=== PATIENT | female | born 1940 | race Caucasian/White ===

== ENCOUNTER 2017-03-03 00:48 | Emergency (ER) | payer BC, MEDICARE ==
[2017-03-03 03:13] VITALS: BP 146/57
[2017-03-03 03:42] LABS: Hematocrit 32 % (35-47); Hemoglobin 10.5 g/dl (12.0-16.0); Mean Corpuscular HGB Conc 33 g/dl (31-36); Mean Corpuscular Hemoglobin 27 pg (27-31); Mean Corpuscular Volume 84 fL (80-97); Mean Platelet Volume 10 um3 (7.4-10.4); Red Blood Count 3.82 10^6/ul (4.0-5.4); Red Cell Distribution Width 15 % (10.5-15); White Blood Count 7.9 10^3/ul (3.5-10.8)
[2017-03-03 03:54] LABS: BUN/Creatinine Ratio 24.8 (8-20); Calcium 8.9 mg/dL (8.6-10.3); EGFR African American 42.7 (>60); EGFR Non-African American 33.2 (>60); Potassium 4.5 mmol/L (3.5-5.0)
[2017-03-03 04:26] LABS: TSH (Thyroid Stimulating Horm) 8.23 mcIU/mL (0.34-5.60)
[2017-03-03 04:33] LABS: Free T4 0.79 ng/dL (0.61-1.12)
--- NOTE | 2017-03-03 20:37 | ED ---
Tulio Fraire Alok, scribed for Jerome Aleman MD on 03/03/17 at 0346 . Lower Extremity - HPI Summary HPI Summary: 76F presents to the ED for restless leg syndrome. Pt has had restless leg syndrome for the past few Pt states her condition is so severe that it caused her to fracture her foot two weeks ago. Pt states her restless leg syndrome occurs both at night as well as during the day. Pt takes sleeping pills and medication for restless leg syndrome. PMHx includes DM. Pt states her sugar levels have been slightly high. - History of Current Complaint Chief Complaint: EDGeneral Stated Complaint: PAIN IN BOTH LEGS Time Seen by Provider: 03/03/17 02:47 Hx Obtained From: Patient Onset/Duration: Weeks Severity Initially: Moderate Severity Currently: Moderate Pain Intensity: 8 Pain Scale Used: 0-10 Numeric Timing: Intermittent Associated Signs And Symptoms: Positive: Other - restless legs Able to Bear Weight: Yes - Allergies/Home Medications Allergies/Adverse Reactions: Allergies Allergy/AdvReac Type Severity Reaction Status Date / Time Meperidine [From Demerol HCl] Allergy Severe Nausea And Verified 03/03/17 03:10 Vomiting PMH/Surg Hx/FS Hx/Imm Hx Endocrine/Hematology History: Reports: Hx Diabetes - ORAL MEDS & INSULIN, Hx Thyroid Disease - FAINTED x 3 IN 03/2015, DR DOMINGUEZ R/T LOW THYROID, STARTED ON MEDS, OK NOW, Hx Anemia - STATES SHE TENDS TO BE LOW, NO MEDS Cardiovascular History: Reports: Hx Hypertension - ON MEDS, STATES UNDER CONTROLL, Hx Syncope - fainted 5 years ago. GI History: Reports: Hx Gastroesophageal Reflux Disease - ON DAILY MED, Hx Hiatal Hernia - yrs ago now on omeprazole and does well, Hx Ulcer - Hx OF yrs ago Denies: Hx Cirrhosis, Hx Crohn's Disease Comment Only: Other GI Disorders - Hx OF ULCERATIVE COLITIS History: Reports: Hx Kidney Stones - Hx OF , PASSED ON OWN Musculoskeletal History: Reports: Hx Arthritis - OSTEOARTHRITIS MOST JOINTS, Hx Bursitis - SHOULDERS, Hx Tendonitis - WRISTS Sensory History: Reports: Hx Cataracts - BILATERAL, HAD SURGERY, Hx Contacts or Glasses - GLASSES INST GIVEN Opthamlomology History: Reports: Hx Cataracts - BILATERAL, HAD SURGERY, Hx Contacts or Glasses - GLASSES INST GIVEN Psychiatric History: Reports: Hx Anxiety - ON DAILY MEDS, Hx Depression - Surgical History Surgery Procedure, Year, and Place: 1963 & 1966 C [facility] 1979 [facility]. 1979-1 2 INCISIONAL HER[facility]AS [facility]. 1979' VARICOSE VEIN [facility]. BACK SURGERY, LUMBAR [facility]. [facility]UNIONECTOMY [facility] 1989' ACHILES TENDON [facility]. RT KNEE SCOPE [facility]. BACK SURGERY, LUMBAR [facility]. 1999 [facility]. 1999 PARATHYROID ONE LOBE [facility]. 2003 BILATERAL CATARACTS. 2012 LEFT TOTAL KNEE [facility] Hx Anesthesia Reactions: Yes - MANY Xs SEVERE N & V, STATES 2013 WAS GOOD, STATES GAVE HER PREOP Infectious Disease History: No Infectious Disease History: Denies: Traveled Outside the [place] in Last 30 Days - Family History Known Family History: Positive: Cardiac Disease - mother at age 69 - Social History Occupation: Retired Lives: Alone Alcohol Use: None Hx Substance Use: No Substance Use Type: Reports: None Hx Tobacco Use: No Smoking Status (MU): Never Smoked Tobacco Have You Smoked in the Last Year: No Review of Systems Negative: Fever, Chills Negative: Erythema Negative: Sore Throat Negative: Chest Pain Negative: Shortness Of Breath, Cough Negative: Abdominal Pain, Vomiting, Nausea Negative: dysuria, hematuria Positive: Other - Restless legs. Negative: Myalgia, Edema Negative: Rash Neurological: Other - Negative: Dizziness All Other Systems Reviewed And Are Negative: Yes Physical Exam - Summary Physical Exam Summary: Constitutional: Well-developed, Well-nourished, Alert. (-) Distressed Skin: Warm, Dry HENT: Normocephalic; Atraumatic Eyes: Conjunctiva normal Neck: Musculoskeletal ROM normal neck. (-) JVD, (-) Stridor, (-) Tracheal deviation Cardio: Rhythm regular, rate normal, Heart sounds normal; Intact distal pulses; The pedal pulses are 2+ and symmetric. Radial pulses are 2+ and symmetric. (-) Murmur Pulmonary/Chest wall: Effort normal. (-) Respiratory distress, (-) Wheezes, (-) Rales Abd: Soft, (-) Tenderness, (-) Distension, (-) Guarding, (-) Rebound Musculoskeletal: (-) Edema Lymph: (-) Cervical adenopathy Neuro: Alert, Oriented x3 Psych: Mood and affect Normal Triage Information Reviewed: Yes Vital Signs On Initial Exam: Initial Vitals Temp Pulse Resp BP Pulse Ox 97.5 F 96 16 121/101 99 03/03/17 00:50 03/03/17 00:50 03/03/17 00:50 03/03/17 00:50 03/03/17 00:50 Vital Signs Reviewed: Yes - Marc Coma Scale Coma Scale Total: 15 Diagnostics - Vital Signs Vital Signs Temp Pulse Resp BP Pulse Ox 03/03/17 03:05 98.2 F 76 14 146/57 97 03/03/17 02:15 98.3 F 95 16 144/44 97 03/03/17 00:50 97.5 F 96 16 121/101 99 - Laboratory Result Diagrams: 03/03/17 03:20 03/03/17 03:20 Lab Statement: Any lab studies that have been ordered have been reviewed, and results considered in the medical decision making process. Lower Extremity Course/Dx - Diagnoses Provider Diagnoses: Restless leg syndrome Discharge - Discharge Plan Condition: Stable Disposition: HOME Patient Education Materials: Restless Legs Syndrome (ED) The documentation as recorded by the Tulio patrick Alok accurately reflects the service I personally performed and the decisions made by Love dempsey Jerry, MD.
== END 2017-03-03 04:41 | disposition home or self-care (01) ==
LOC: ED 00:48
DX: G25.81 Restless legs syndrome (principal); E11.9 Type 2 diabetes mellitus without complications; Z79.4 Long term (current) use of insulin
CPT/HCPCS: 36415; 80048; 82330; 84439; 84443; 85027; 99282; 99285

== ENCOUNTER 2019-04-18 13:22 | Emergency (ER) | payer BC ==
[2019-04-18 14:14] VITALS: BP 138/58
== END 2019-04-18 15:42 | disposition left against medical advice (07) ==
LOC: UCEAST 13:22
DX: M54.9 Dorsalgia, unspecified (principal); Z53.21 Procedure and treatment not carried out due to patient leaving prior to being seen by health care provider
CPT/HCPCS: 81003

== ENCOUNTER 2019-04-30 09:58 | Emergency (ER) | payer BC ==
[2019-04-30] MEDS ORDERED: NS 0.9% 1000 ML** 1,000 ML IV ONE (10:33)
--- NOTE | 2019-04-30 10:33 | ED ---
Back Pain - HPI Summary HPI Summary: This patient is a 78 year old F presenting to [facility] accompanied by son with a chief complaint of worsening back pain radiating to flanks for the past 6-8 weeks. Pt reports pain was becoming unbearable (per triage, the patient rates the pain 7/10 in severity.) and that is why she came to the ED [facility] Chest and told her it was nml. Pt reports a numb spot in back, but it does not hurt to bend or move. Patient reports nausea, nml urination, chronic issues with BM. Patient denies diarrhea. Per triage, the patient rates the pain 7/10 in severity. Symptoms alleviated by nothing. Pt has PMHx of diverticulitis, and she has had 2 back surgeries due to herniated disks. Pts PCP is Dr. Bernal. - History of Current Complaint Chief Complaint: EDAbdPain Stated Complaint: LT SIDE ABD PAIN PER PT Time Seen by Provider: 04/30/19 10:18 Hx Obtained From: Patient Onset/Duration: Gradual Onset, Lasting Weeks, Still Present Onset/Duration: Started Weeks Ago, Still Present Timing: Constant Severity Currently: Severe Pain Intensity: 7 Pain Scale Used: 0-10 Numeric Aggravating Symptom(s): Nothing Alleviating Symptom(s): Nothing Associated Signs And Symptoms: Positive: Negative - diarrhea, Abdominal Pain, Other - nausea - Allergies/Home Medications Allergies/Adverse Reactions: Allergies Allergy/AdvReac Type Severity Reaction Status Date / Time meperidine [From Demerol] AdvReac Severe Nausea And Verified 04/30/19 10:07 Vomiting Home Medications: Home Medications HYDROcodone/ACETAMIN 5-325 MG* [[place] 5-325 TAB*] 1 tab PO Q6H PRN 04/30/19 [ History Confirmed 04/30/19] Lovastatin (NF) [Mevacor (NF)] 80 mg PO BEDTIME 04/30/19 [History Confirmed ] SitaGLIPtin (NF) [Januvia (NF)] 100 mg PO DAILY 04/30/19 [History Confirmed ] rOPINIRole TAB* [Requip*] 4 - 12 mg PO DAILY 04/30/19 [History Confirmed ] traZODone TAB* [Desyrel TAB*] 50 mg PO BEDTIME PRN 04/30/19 [History Confirmed 04/30/19] PMH/Surg Hx/FS Hx/Imm Hx Endocrine/Hematology History: Reports: Hx Diabetes - ORAL MEDS & INSULIN, Hx Thyroid Disease - FAINTED x 3 IN 03/2015, DR RIVERO R/T LOW THYROID, STARTED ON MEDS, OK NOW, Hx Anemia - STATES SHE TENDS TO BE LOW, NO MEDS Cardiovascular History: Reports: Hx Hypertension, Hx Syncope - fainted 5 years ago. Denies: Hx Pacemaker/ICD GI History: Reports: Hx Gastroesophageal Reflux Disease - ON DAILY MED, Hx Hiatal Hernia - yrs ago now on omeprazole and does well, Hx Ulcer - Hx OF yrs ago Denies: Hx Cirrhosis, Hx Crohn's Disease Comment Only: Other GI Disorders - Hx OF ULCERATIVE COLITIS History: Reports: Hx Kidney Stones - Hx OF , PASSED ON OWN Denies: Hx Renal Disease Musculoskeletal History: Reports: Hx Arthritis - OSTEOARTHRITIS MOST JOINTS, Hx Bursitis - SHOULDERS, Hx Tendonitis - WRISTS Sensory History: Reports: Hx Cataracts - BILATERAL, HAD SURGERY, Hx Contacts or Glasses - GLASSES INST GIVEN Denies: Hx Hearing Aid Opthamlomology History: Reports: Hx Cataracts - BILATERAL, HAD SURGERY, Hx Contacts or Glasses - GLASSES INST GIVEN Psychiatric History: Reports: Hx Anxiety - ON DAILY MEDS, Hx Depression Denies: Hx Panic Disorder - Surgical History Surgery Procedure, Year, and Place: 1963 & 1966 C SECTION [facility] 1979 HYSTERECTOMY [facility]. 1979-1 2 INC[facility]AL [facility]. 1979'S VARICOSE VEIN [facility]. BACK SURGERY, L[facility]. 1989'S [facility]UNIONECTOMY [facility]. 1989'S ACHILES TENDON [facility]. RT KNEE SCOPE [facility] BACK SURGERY, LUMBAR [facility]. 1999 [facility]. 1999 PARATHYROID ONE LOBE [facility]. 2004 BILATERAL CATARACTS. 2013 LEFT TOTAL KNEE [facility]. right shoulder rotator cuff Hx Anesthesia Reactions: Yes - MANY Xs SEVERE N & V, STATES 2013 WAS GOOD, STATES GAVE HER PREOP Infectious Disease History: No Infectious Disease History: Denies: Traveled Outside the [place] in Last 30 Days - Family History Known Family History: Positive: Cardiac Disease - mother at age 69 - Social History Occupation: Retired Alcohol Use: None Hx Substance Use: No Substance Use Type: Reports: None Hx Tobacco Use: No Smoking Status (MU): Never Smoked Tobacco Have You Smoked in the Last Year: No Review of Systems Positive: Abdominal Pain, Nausea. Negative: Diarrhea Positive: Other - back pain Positive: Numbness - spot on back All Other Systems Reviewed And Are Negative: Yes Physical Exam - Summary Physical Exam Summary: Appearance: Well-appearing, Well-nourished, lying in bed comfortably Skin: Warm, dry, no obvious rash Eyes: sclera anicteric, no conjunctival pallor ENT: mucous membranes moist, pharynx appears normal Neck: Supple, nontender Respiratory: Clear to auscultation, no signs of respiratory distress Cardiovascular: Normal S1, S2. No murmurs. Normal distal pulses in tibial and radial bilaterally. Abdomen: Soft, LLQ tenderness, normal active bowel sounds present Musculoskeletal: Normal, Strength/ROM Intact Neurological: A&Ox3, awake and alert, mentation is normal, speech is fluent and appropriate Psychiatric: affect is normal, does not appear anxious or depressed Triage Information Reviewed: Yes Vital Signs On Initial Exam: Initial Vitals Temp Pulse Resp BP Pulse Ox 98.1 F 76 16 155/79 98 04/30/19 10:03 04/30/19 10:03 04/30/19 10:03 04/30/19 10:03 04/30/19 10:03 Vital Signs Reviewed: Yes Diagnostics - Vital Signs Vital Signs Temp Pulse Resp BP Pulse Ox 04/30/19 10:03 98.1 F 76 16 155/79 98 - Laboratory Result Diagrams: 04/30/19 10:44 04/30/19 10:44 Lab Statement: Any lab studies that have been ordered have been reviewed, and results considered in the medical decision making process. - CT Abdomen/Pelvis CT CT Interpretation Completed By: Radiologist Summary of CT Findings: Abdomen/Pelvis CT reveals, per radiologist, IMPRESSION: Patient is status post cholecystectomy. No obstructive uropathy is noted. ED physician has reviewed this radiology report. Re-Evaluation - Re-Evaluation First Eval Re-Evaluation Time: 13:48 Comment: Discussed results and plan of care with pt. Back Pain Course/Dx - Course Course Of Treatment: This patient is a 78 year old F presenting to [facility] accompanied by son with a chief complaint of worsening back pain radiating to flanks for the past 6-8 weeks. Pt reports pain was becoming unbearable and that is why she came to the ED. Pt reports a numb spot in back, but it does not hurt to bend or move. Patient reports nausea, nml urination, chronic issues with BM. Patient denies diarrhea. Physical Exam Findings are nml except for LLQ tenderness. Blood work obtained. Chloride is 100, BUN/ Creatinine Ratio is 23.6 , Glucose is 234. UA obtained. Urine blood is 1+ A, Urine Nitrate is Positive, Ur Leukocyte Esterase is Trace, Ur Squamous epith cells is present, urine bacteria is 2+, urine glucose is 1+. Abdomen/Pelvis CT reveals, per radiologist , IMPRESSION: Patient is status post cholecystectomy. No obstructive uropathy is noted. ED physician has reviewed this radiology report. Patient will be discharged. The patient is agreeable with this plan. - Diagnoses Provider Diagnoses: Pyelonephritis Discharge - Sign-Out/Discharge Documenting (check all that apply): Patient Departure - Discharge Patient Received Moderate/Deep Sedation with Procedure: No - Discharge Plan Condition: Good Disposition: HOME Prescriptions: Nitrofurantoin Monohyd/M-Cryst [Macrobid 100 mg Capsule] 100 mg PO BID #20 cap Patient Education Materials: Kidney Infection (ED) Referrals: Maxi Rivero MD [Primary Care Provider] - Additional Instructions: We should have a preliminary urine culture available by Sunday, so please call your doctor and have his office check on that. We also will be calling if there needs to be a change in the antibiotic prescribed. Your doctor prescribed tramadol for your pain so pick that up when you supervisor opening and picking the antibiotic. Your CT scan did not show any abnormalities that would correlate with your pain. If treating for infection doesn't help, particularly if the urine culture is negative by Sunday, your doctor may need to order more diagnostic tests. - Attestation Statements Document Initiated by Deeibe: Yes Documenting Scribe: Laura Munoz Provider For Whom Linda is Documenting (Include Credential): Dr. Gokul Norton MD Scribe Attestation: I, donovan Roldaned for Dr. Gokul Norton MD on 04/30/19 at 1426. Status of Scribe Document: Ready
[2019-04-30 10:56] LABS: ABS Basophils 0.1 10^3/ul (0-0.2); ABS Eosinophils 0.5 10^3/ul (0-0.6); ABS Lymphocytes 2.5 10^3/ul (1.0-4.8); ABS Monocytes 0.5 10^3/ul (0-0.8); ABS Neutrophils 5.4 10^3/ul (1.5-7.7); Eosinophil % 5.2 %; Hematocrit 38 % (35-47); Hemoglobin 12.5 g/dL (12.0-16.0); Lymphocyte % 27.6 %; Mean Corpuscular HGB Conc 33 g/dL (31-36); Mean Corpuscular Hemoglobin 27 pg (27-31); Mean Corpuscular Volume 83 fL (80-97); Mean Platelet Volume 9.3 fL (7.4-10.4); Platelet Count 210 10^3/uL (150-450); Red Blood Count 4.58 10^6 /uL (3.70-4.87); Red Cell Distribution Width 15 % (10-15); White Blood Count 8.9 10^3/uL (3.5-10.8)
[2019-04-30 11:06] LABS: Calcium 9.5 mg/dL (8.6-10.3); Potassium 4.5 mmol/L (3.5-5.0); Total Bilirubin 0.3 mg/dL (0.2-1.0)
[2019-04-30 11:12] LABS: Albumin/Globulin Ratio 1.4 (1-3); BUN/Creatinine Ratio 23.6 (8-20); EGFR African American 51.4 (>60); EGFR Non-African American 42.5 (>60); Globulin 2.8 g/dL (2-4); Total Protein 6.8 g/dL (6.4-8.9)
[2019-04-30 11:38] LABS: Urine Appearance Cloudy; Urine Bacteria 2+ (Absent); Urine Bilirubin Negative (Negative); Urine Blood 1+ (Negative); Urine Color Yellow; Urine Glucose 1+(50 mg/dL) (Negative); Urine Ketones Negative (Negative); Urine Nitrite Positive (Negative); Urine Protein Negative (Negative); Urine Red Blood Cell Trace(0-2/hpf) (Absent); Urine Squamous Epithelial Cell Present (Absent); Urine Urobilinogen Negative (Negative); Urine White Blood Cell 1+(6-10/hpf) (Absent)
[2019-04-30] MEDS ORDERED: Iodixanol* (CONTRAST) 320 MG/ML 100 ML SDV IV ONE (12:50)
[2019-04-30] MEDS ORDERED: Nitrofurantoin Macrocrystals* 100 MG CAP PO ONE (14:11)
[2019-04-30 14:53] VITALS: BP 141/74
--- NOTE | 2019-05-02 06:09 | PN ---
Progress Note - Progress Note Date of Service: 05/02/19 Note: Patient's preliminary urine culture grew e coli 75-100,000. Patient placed on Macrobid will wait for final culture for sensitivity
== END 2019-04-30 14:52 | disposition home or self-care (01) ==
LOC: ED 09:58
DX: N12 Tubulo-interstitial nephritis, not specified as acute or chronic (principal); E11.9 Type 2 diabetes mellitus without complications; E03.9 Hypothyroidism, unspecified; I10 Essential (primary) hypertension; K21.9 Gastro-esophageal reflux disease without esophagitis; M19.90 Unspecified osteoarthritis, unspecified site; F41.9 Anxiety disorder, unspecified; F32.9 Major depressive disorder, single episode, unspecified; Z79.899 Other long term (current) drug therapy; Z79.4 Long term (current) use of insulin; Z88.5 Allergy status to narcotic agent; Z90.49 Acquired absence of other specified parts of digestive tract
CPT/HCPCS: 36415; 74177; 80053; 81003; 81015; 83690; 85025; 87077; 87086; 87186; 96360; 99283; A9270-GY; Q9967

== ENCOUNTER 2019-10-17 17:21 | Observation (INO) | payer MEDICARE, OTHER ==
[2019-10-17 19:09] LABS: Urine Appearance Clear; Urine Bilirubin Negative (Negative); Urine Blood 2+ (Negative); Urine Color Straw; Urine Glucose 2+(150 mg/dL) (Negative); Urine Ketones Negative (Negative); Urine Nitrite Negative (Negative); Urine Protein 2+(100 mg/dL) (Negative); Urine Specific Gravity 1.009 (1.010-1.030); Urine Urobilinogen Negative (Negative)
[2019-10-17 19:12] LABS: Urine Bacteria 3+ (Absent); Urine Red Blood Cell 1+(3-5/hpf) (Absent); Urine Squamous Epithelial Cell Present (Absent); Urine White Blood Cell 1+(6-10/hpf) (Absent)
[2019-10-17] MEDS ORDERED: Albuterol/Ipratropium NEB.SOL* Albuterol 2.5 MG/Ipratropium 0.5 MG 3 ML INH ONE (20:06)
--- NOTE | 2019-10-17 20:09 | ED ---
Respiratory - HPI Summary HPI Summary: This patient is a 79 year old female presenting to [facility] with a chief complaint of cough and elevated BP. She states she has had the cough since one month ago. She was sent here from [facility] due to having an elevated BP. BP in room is 175/75. She reports chest pain only when coughing. She reports back pain. Patient has a Hx of DM. - History of Current Complaint Chief Complaint: EDUpperRespComplaint Stated Complaint: HIGH BP AND COUGH PER PT Time Seen by Provider: 10/17/19 19:22 Hx Obtained From: Patient Onset/Duration: Lasting Weeks, Still Present Pain Intensity: 0 Character: Cough (Nonproductive) Associated Signs and Symptoms: Chest Pain with Cough - Allergy/Home Medications Allergies/Adverse Reactions: Allergies Allergy/AdvReac Type Severity Reaction Status Date / Time meperidine [From Demerol] AdvReac Severe Nausea And Verified 10/17/19 19:23 Vomiting Home Medications: Home Medications Exenatide Microspheres [Bydureon Bcise] 2 mg SUBCUT WEEKLY 10/17/19 [History Confirmed 10/17/19] LORazepam TAB(*) [Ativan 0.5 MG TAB (*)] 0.5 - 1 mg PO ONCE PRN 10/17/19 [ History Confirmed 10/17/19] Levothyroxine TAB* [Synthroid TAB*] 75 mcg PO DAILY 10/17/19 [History Confirmed 10/17/19] Polymyx/Trimethoprim OPTH* [Polytrim OPHTH*] 2 drop BOTH EYES TID 10/17/19 [ History Confirmed 10/17/19] Quetiapine Fumarate [Seroquel 50 mg tab] 50 - 100 mg PO BEDTIME 10/17/19 [ History Confirmed 10/17/19] traMADol TAB* [Ultram*] 50 mg PO Q6HR PRN 10/17/19 [History Confirmed 10/17/19] PMH/Surg Hx/FS Hx/Imm Hx Endocrine/Hematology History: Reports: Hx Diabetes - ORAL MEDS & INSULIN, Hx Thyroid Disease - FAINTED x 3 IN 03/2015, DR DOMINGUEZ R/T LOW THYROID, STARTED ON MEDS, OK NOW, Hx Anemia - STATES SHE TENDS TO BE LOW, NO MEDS Cardiovascular History: Reports: Hx Hypertension, Hx Syncope - fainted 5 years ago. Denies: Hx Pacemaker/ICD GI History: Reports: Hx Gastroesophageal Reflux Disease - ON DAILY MED, Hx Hiatal Hernia - yrs ago now on omeprazole and does well, Hx Ulcer - Hx OF yrs ago Denies: Hx Cirrhosis, Hx Crohn's Disease Comment Only: Other GI Disorders - Hx OF ULCERATIVE COLITIS History: Reports: Hx Kidney Stones - Hx OF , PASSED ON OWN Denies: Hx Renal Disease Musculoskeletal History: Reports: Hx Arthritis - OSTEOARTHRITIS MOST JOINTS, Hx Bursitis - SHOULDERS, Hx Tendonitis - WRISTS Sensory History: Reports: Hx Cataracts - BILATERAL, HAD SURGERY, Hx Contacts or Glasses - GLASSES INST GIVEN Denies: Hx Hearing Aid Opthamlomology History: Reports: Hx Cataracts - BILATERAL, HAD SURGERY, Hx Contacts or Glasses - GLASSES INST GIVEN Psychiatric History: Reports: Hx Anxiety - ON DAILY MEDS, Hx Depression Denies: Hx Panic Disorder - Surgical History Surgery Procedure, Year, and Place: 1963 & 1966 C [facility]. 1979 [facility]STERECTOMY [facility]. 1979- 2 INCISIONAL [facility]. 1979' VARICOSE VEIN [facility]. BACK SURGERY, L[facility]BAR [facility]. BUNIONECTOMY [facility]. 1989' ACHILES TENDON [facility]. RT KNEE SCOPE [facility]. BACK SURGERY, LUMBAR [facility]STATE. 1999 [facility]. 1999 PARATHYROID ONE LOBE [facility]. 2004 BILATERAL CATARACTS. 2013 LEFT TOTAL KNEE [facility]. right shoulder rotator cuff Hx Anesthesia Reactions: Yes - MANY Xs SEVERE N & V, STATES 2013 WAS GOOD, STATES GAVE HER PREOP Infectious Disease History: No Infectious Disease History: Denies: Traveled Outside the [place] in Last 30 Days - Family History Known Family History: Positive: Cardiac Disease - mother at age 69 - Social History Alcohol Use: Rare Hx Substance Use: No Substance Use Type: Reports: None Hx Tobacco Use: No Smoking Status (MU): Never Smoked Tobacco Have You Smoked in the Last Year: No Review of Systems - ROS Summary Review of Systems Summary: Citalopram TAB* [Celexa TAB*] 20 mg PO QAM 01/10/13 [History Confirmed 06/27/19] Enalapril TAB* [Vasotec TAB*] 20 mg PO BID 01/10/13 [History Confirmed 06/27/19] Omeprazole CAP (NF) [Prilosec CAP*] 20 mg PO QAM 01/10/13 [History Confirmed ] zzInsulin GLARGINE(*) [Lantus(*)] 100 units SUBCUT BEDTIME 01/10/13 [History Confirmed 06/27/19] Levothyroxine TAB* [Synthroid TAB*] 25 mcg PO DAILY 06/25/15 [History Confirmed 06/27/19] Lovastatin (NF) [Mevacor (NF)] 80 mg PO BEDTIME 04/30/19 [History Confirmed ] SitaGLIPtin (NF) [Januvia (NF)] 100 mg PO DAILY 04/30/19 [History Confirmed ] rOPINIRole TAB* [Requip*] 4 - 12 mg PO DAILY 04/30/19 [History Confirmed ] traZODone TAB* [Desyrel TAB*] 50 mg PO BEDTIME PRN 04/30/19 [History Confirmed 06/27/19] Aspirin TAB* [Aspirin 325 MG TAB*] 325 mg PO BID PRN 06/27/19 [History Confirmed 06/27/19] Pregabalin 50 mg CAP (*) [Lyrica CAP(*)] 50 mg PO BID 06/27/19 [History Confirmed 06/27/19] Positive: Chest Pain, Other - Elevated BP Positive: Cough Positive: Other - Back pain All Other Systems Reviewed And Are Negative: Yes Physical Exam - Summary Physical Exam Summary: General: Elderly obese FEMALE. No acute distress. HEENT: Normocephalic, Atraumatic. Eyes: Conjuctiva normal, PERRL. Oropharynx: Clear, mucous membranes moist, (-) exudates. Neck: Soft, FROM, (-) lymphadenopathy, (-) thyromegaly, (-) JVD. Cardiovascular: Normal sinus rhythm, (-) murmur. Lungs: Clear to auscultation bilaterally, equal breath sounds bilaterally, tight wheezing throughout, persistent shallow cough. (-) rales, (-) rhonchi. Abdomen: Soft, non-tender, non-distended, (-) organomegaly, normal bowel sounds. Back: (-) CVA tenderness Extremities: No edema. Skin: Warm, dry, (-) rash. Neuro: Alert and oriented x3, no focal deficits. Psychiatric: Mood normal, affect normal. Triage Information Reviewed: Yes Vital Signs On Initial Exam: Initial Vitals Temp Pulse Resp BP Pulse Ox 98.4 F 94 20 159/94 96 10/17/19 17:27 10/17/19 17:27 10/17/19 17:27 10/17/19 17:27 10/17/19 17:27 Vital Signs Reviewed: Yes Procedures - Sedation Patient Received Moderate/Deep Sedation with Procedure: No Diagnostics - Vital Signs Vital Signs Temp Pulse Resp BP Pulse Ox 10/17/19 19:05 98 201/85 96 10/17/19 19:04 101 94 10/17/19 17:27 98.4 F 94 20 159/94 96 - Laboratory Lab Results: Lab Results 10/17/19 Range/Units 17:24 Urine Color Straw Urine Appearance Clear Urine pH 6.0 (5-9) Ur Specific [place] 1.009 L (1.010-1.030) Urine Protein 2+(100 mg/dl) A (Negative) Urine Ketones Negative (Negative) Urine Blood 2+ A (Negative) Urine Nitrate Negative (Negative) Urine Bilirubin Negative (Negative) Urine Urobilinogen Negative (Negative) Ur Leukocyte Esterase Negative (Negative) Urine WBC (Auto) 1+(6-10/hpf) A (Absent) Urine RBC (Auto) 1+(3-5/hpf) A (Absent) Ur Squamous Epith Cells Present A (Absent) Urine Bacteria 3+ A (Absent) Urine Glucose 2+(150 mg/dl) A (Negative) Result Diagrams: 10/17/19 20:25 10/17/19 20:25 Lab Statement: Any lab studies that have been ordered have been reviewed, and results considered in the medical decision making process. - Radiology CXR Radiology Interpretation Completed By: ED Physician Summary of Radiographic Findings: Right lower lobe pneumonia. Pending official radiologist report. - CT CTA Chest/Abd/Pel CT Interpretation Completed By: Radiologist Summary of CT Findings: 1. No acute findings or evidence of pulmonary embolus. 2. Ill-defined bibasilar lung opacities, likely atelectasis with possible mild interstitial edema. 3. Borderline cardiomegaly. Coronary artery disease. 4. 1.5 cm left thyroid nodule with internal calcifications, unchanged since prior CT. ED Provider has reviewed this report. - EKG 2135 Cardiac Rate: Tachycardia - 102 BPM EKG Rhythm: Sinus Tachycardia Summary of EKG Findings: No STEMI. ED Physician has reviewed and interpreted this EKG. Re-Evaluation - Re-Evaluation First Eval Re-Evaluation Time: 21:58 Comment: Discussed with Dr. Ashley who recommended CTA chest to check for pulmonary emoblism. Disposition - Course Course Of Treatment: 79 year old female sent from pcp office. patient has had a cough for about a month. now getting chest pain when she coughs. ekg not normal at pcp office. upon arrival patient is is no acute distress. has no pain. lungs have rhonchi in right base. pneumonia on cxr. troponin elevated at .04. started on lopressor and referred to hospitalist for admission. - Diagnoses Provider Diagnoses: Pneumonia, CHF (congestive heart failure), Cough Discharge ED - Sign-Out/Discharge Documenting (check all that apply): Patient Departure - Admission, accepted by Dr. Ashley, Hospitalist - Discharge Plan Condition: Stable Disposition: ADMITTED TO [facility] - Billing Disposition and Condition Condition: STABLE Disposition: Admitted to [facility] - Attestation Statements Document Initiated by Linda: Yes Documenting Scribe: Jeff Webster Provider For Whom Linda is Documenting (Include Credential): Nohemy Modi MD Scribe Attestation: IJeff, scribed for Nohemy Modi MD on 10/18/19 at 0619. Scribe Documentation Reviewed: Yes Provider Attestation: The documentation as recorded by the Jeff patrick accurately reflects the service I personally performed and the decisions made by me, Nohemy Modi MD Status of Scribe Document: Viewed
[2019-10-17 20:38] LABS: ABS Basophils 0.1 10^3/ul (0-0.2); ABS Eosinophils 0.6 10^3/ul (0-0.6); ABS Lymphocytes 2.9 10^3/ul (1.0-4.8); ABS Monocytes 0.7 10^3/ul (0-0.8); ABS Neutrophils 7.2 10^3/ul (1.5-7.7); Eosinophil % 5.4 %; Hematocrit 35 % (35-47); Hemoglobin 11.6 g/dL (12.0-16.0); Mean Corpuscular HGB Conc 33 g/dL (31-36); Mean Corpuscular Hemoglobin 28 pg (27-31); Mean Corpuscular Volume 85 fL (80-97); Mean Platelet Volume 9.7 fL (7.4-10.4); Nucleated Red Blood Cells % 0.1; Platelet Count 248 10^3/uL (150-450); Red Cell Distribution Width 15 % (10-15); White Blood Count 11.5 10^3/uL (3.5-10.8)
[2019-10-17 20:58] LABS: ALT 18 U/L (7-52); AST 21 U/L (13-39); Albumin/Globulin Ratio 1.4 (1-3); Alkaline Phosphatase 71 U/L (34-104); Anion Gap 11 mmol/L (2-11); BUN/Creatinine Ratio 15.7 (8-20); Blood Urea Nitrogen 16 mg/dL (6-24); CO2 Carbon Dioxide 26 mmol/L (22-32); Calcium 9.1 mg/dL (8.6-10.3); Chloride 101 mmol/L (101-111); EGFR African American 63.6 (>60); EGFR Non-African American 52.5 (>60); Globulin 2.8 g/dL (2-4); Glucose 368 mg/dL (70-100); Potassium 3.3 mmol/L (3.5-5.0); Sodium 138 mmol/L (135-145); Total Protein 6.8 g/dL (6.4-8.9)
[2019-10-17 21:00] LABS: INR 1.15 (0.82-1.09)
[2019-10-17 21:07] LABS: Troponin I 0.09 ng/mL (<0.03)
[2019-10-17] MEDS ORDERED: cefTRIAXone(*) 2 GM in NS 0.9% 100 ML* 100 ML IVPB ONE (21:46)
[2019-10-17] MEDS ORDERED: Iodixanol* (CONTRAST) 320 MG/ML 100 ML SDV IV ONE (22:06)
[2019-10-18] MEDS ORDERED: Furosemide IV* 10 MG/ML VIAL (40 MG) IV SLOW PU ONE (00:03)
[2019-10-18] MEDS ORDERED: Potassium Chlor TAB* 20 MEQ TAB.ER PO ONE ×2 (01:57→09:16)
[2019-10-18] MEDS ORDERED: LORazepam TAB(*) 0.5 MG PO PRN (02:24)
[2019-10-18 02:37] LABS: Troponin I 0.09 ng/mL (<0.03)
[2019-10-18] MEDS ORDERED: Enalapril TAB* 20 MG PO ONE (02:38)
[2019-10-18] MEDS ORDERED: Benzonatate CAP* 100 MG PO PRN (02:40)
[2019-10-18] MEDS ORDERED: Enalapril TAB* 20 MG PO SCH ×2 (03:00→09:00)
--- NOTE | 2019-10-18 04:23 | HP ---
History of Present Illness - History of Present Illness Reason for Visit: high BP History of Present Illness: Rosita Page is a 79 y/o female with history of DM, hypothyroidism, DM , HTN, GERD, anxiety, depression, arthritis, was sent to hospital by her primary care for high BP 180/88mmhg detected in PCP office. Patient went to see PCP for cough for 4 weeks. She described dry cough, mild throat discomfort, no running nose, no body ache, no SOB, she thought it was a upper respiratory infection, however not going away. She denied wheezing, post nasal drip. She admitted chest pain but happened when she was coughing, no palpitation, no dizziness, no SOB. She was not checking BP at home, but her bp is usually good at PCP office until this time. She is taking enalapril 20mg for years. In ED, her sBP went up to 200s, no symptoms other than cough and pleural pain. - Past Medical History Past Medical History: 1. DM 2. Hypothyroidism 3. Anemia 4. HTN 5. GERD 6. Hiatal Hernia 7. kidney ston 8. athritis 9. bursitis, tendonitis 10. Anxiety 11. Depression - Past Surgical History Past Surgical History: 1. Rotator cuff repair 2016 right 2. Knee arhroscopy right 3. Cholecystectomy 2009 4. Hyesterectomy 5. section x2 6. Incisional hernia repair - Past Family History Past Family History: Mother has heart disease, decreased age 69 History of heart disease in her mom' family, one of her uncle at age 45 due to heart disease - Past Social History Past Social History: Stays alone at home with her pet. 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 No smoking, no alcohol use, no substance use. Medications: Home Medications Medication Instructions Recorded Confirmed Type Citalopram TAB* [Celexa TAB*] 20 mg PO QAM 01/10/13 10/17/19 History Enalapril TAB* [Vasotec TAB*] 20 mg PO BID 01/10/13 10/17/19 History Omeprazole CAP (NF) [Prilosec CAP*] 20 mg PO QAM 01/10/13 10/17/19 History zzInsulin GLARGINE(*) [Lantus(*)] 100 - 120 units SUBCUT DAILY 01/10/13 History Lovastatin (NF) [Mevacor (NF)] 80 mg PO BEDTIME 04/30/19 10/17/19 History SitaGLIPtin (NF) [Januvia (NF)] 100 mg PO DAILY 04/30/19 10/17/19 History rOPINIRole TAB* [Requip*] 4 - 12 mg PO DAILY 04/30/19 10/17/19 History Aspirin TAB* [Aspirin 325 MG TAB*] 325 mg PO BID PRN 06/27/19 10/17/19 History Pregabalin 50 mg CAP (*) [Lyrica 100 mg PO BID 06/27/19 10/17/19 History CAP(*)] Exenatide Microspheres [Bydureon 2 mg SUBCUT WEEKLY 10/17/19 10/17/19 History Bcise] LORazepam TAB(*) [Ativan 0.5 MG 0.5 - 1 mg PO ONCE PRN 10/17/19 10/17/19 History TAB (*)] Levothyroxine TAB* [Synthroid TAB*] 75 mcg PO DAILY 10/17/19 10/17/19 History Polymyx/Trimethoprim OPTH* 2 drop BOTH EYES TID 10/17/19 10/17/19 History [Polytrim OPHTH*] Quetiapine Fumarate [Seroquel 50 50 - 100 mg PO BEDTIME 10/17/19 10/17/19 History mg tab] traMADol TAB* [Ultram*] 50 mg PO Q6HR PRN 10/17/19 10/17/19 History Allergies/Adverse Reactions: Allergies Allergy/AdvReac Type Severity Reaction Status Date / Time meperidine [From Demerol] AdvReac Severe Nausea And Verified 10/17/19 19:23 Vomiting Review of Systems - Review of Systems Constitutional: Negative: Fever, Chills, Sweats, Weakness, Malaise, Other Eyes: Negative: Pain, Vision Change, Conjunctivae Inflammation, Eyelid Inflammation, Redness, Other ENT: Positive: Throat Pain. Negative: Ear Pain, Ear Discharge, Nose Pain, Nose Discharge, Nose Congestion, Mouth Pain, Mouth Swelling, Throat Swelling, Other Respiratory: Positive: Cough, Dry, Pleuritic Pain. Negative: Shortness of Breath, Hemoptysis, SOB with Excertion, Sputum, Wheezing Cardiovascular: Positive: Chest Pain Gastrointestinal: Negative: Nausea, Vomiting, Abdominal Pain, Diarrhea, Constipation, Melena, Hematochezia, Other Genitourinary: Negative: Dysuria, Frequency, Incontinence, Hematuria, Retention , Other Musculoskeletal: Negative: Neck Pain, Shoulder Pain, Arm Pain, Back Pain, Hand Pain, Leg Pain, Foot Pain, Other Skin: Negative: Rash, Lesions, John, Bruising, Other Neurological: Negative: Weakness, Numbness, Incoordination, Change in Speech, Confusion, Seizures, Other Exam Vital Signs: Vital Signs (72 hours) 10/17/19 10/17/19 10/17/19 17:27 19:04 19:05 Temperature 98.4 F Pulse Rate 94 101 98 Respiratory 20 Rate Blood Pressure 159/94 201/85 (mmHg) O2 Sat by Pulse 96 94 96 Oximetry 10/17/19 10/17/19 10/17/19 19:35 20:39 21:53 Temperature Pulse Rate 88 98 Respiratory 19 16 14 Rate Blood Pressure 175/75 (mmHg) O2 Sat by Pulse 94 96 Oximetry 10/17/19 10/17/19 10/17/19 21:55 22:00 22:36 Temperature Pulse Rate 96 96 90 Respiratory 16 22 Rate Blood Pressure 196/85 197/117 (mmHg) O2 Sat by Pulse 96 97 98 Oximetry 10/17/19 10/17/19 10/17/19 23:00 23:06 23:36 Temperature Pulse Rate 96 96 91 Respiratory 19 25 25 Rate Blood Pressure 189/113 188/104 (mmHg) O2 Sat by Pulse 96 96 96 Oximetry 10/17/19 10/18/19 10/18/19 23:45 00:00 00:06 Temperature Pulse Rate 92 92 91 Respiratory 24 21 24 Rate Blood Pressure 187/83 (mmHg) O2 Sat by Pulse 95 96 96 Oximetry 10/18/19 10/18/19 10/18/19 00:36 01:00 01:06 Temperature Pulse Rate 89 89 89 Respiratory 23 25 24 Rate Blood Pressure 187/90 180/86 (mmHg) O2 Sat by Pulse 95 95 96 Oximetry 10/18/19 10/18/19 10/18/19 01:36 02:00 02:22 Temperature Pulse Rate 87 85 84 Respiratory 19 21 17 Rate Blood Pressure 181/99 184/103 (mmHg) O2 Sat by Pulse 96 96 97 Oximetry 10/18/19 10/18/19 10/18/19 02:56 03:00 04:03 Temperature 98.6 F Pulse Rate 84 78 Respiratory 18 18 18 Rate Blood Pressure 178/91 (mmHg) O2 Sat by Pulse 97 92 Oximetry Exam: Appearance: Not in acute distress, frequent cough. Eyes: sclera anicteric, no conjunctival pallor, PERRLA ENT: pharynx appears erythematous, tonsils not enlarged Respiratory: Clear to auscultation, no signs of respiratory distress Cardiovascular: Normal S1, S2. No murmur Musculoskeletal: ROM full, strength full grossly Neurological: A&Ox3, mentation normal Abdomen: Soft, non tender Psy: stable. Result Diagrams: 10/17/19 20:25 10/17/19 20:25 Additional Lab and Data: Lab Results 10/17/19 Range/Units 17:24 Urine Color Straw Urine Appearance Clear Urine pH 6.0 (5-9) Ur Specific Bailey 1.009 L (1.010-1.030) Urine Protein 2+(100 mg/dl) A (Negative) Urine Ketones Negative (Negative) Urine Blood 2+ A (Negative) Urine Nitrate Negative (Negative) Urine Bilirubin Negative (Negative) Urine Urobilinogen Negative (Negative) Ur Leukocyte Esterase Negative (Negative) Urine WBC (Auto) 1+(6-10/hpf) A (Absent) Urine RBC (Auto) 1+(3-5/hpf) A (Absent) Ur Squamous Epith Cells Present A (Absent) Urine Bacteria 3+ A (Absent) Urine Glucose 2+(150 mg/dl) A (Negative) Trop: 0.09->0.09 Diagnostic Imaging: CTA negative, no pulmonary embolism. Atelectasis with possible interstitial edema. EKG Data: EKG: sinus tachy with HR 102, RBBB and LAFB, LVH, TWI V1-V3 (last EKG in 2016, no recent one on file) Assessment/Plan - Assessment/Plan Assessment: Rosita Page is a 79 y/o female with history of DM, hypothyroidism, DM , HTN, GERD, anxiety, depression, arthritis, presented with high BP 180/88mmhg detected in PCP office. She is noted to have elevated trop with EKG changes, thus we admitted the patient for further monitoring. She also had dry cough for 4 weeks, no signs of infection at this moment, this may need further workup. Plan: 1. hypertensive urgency - telemetry monitoring - so far no end organ damage signs and symptoms, trop is stable at 0.09 - was given lasix once in ED - she omitted enalapril night time dose, will give that first and monitor bp closely - likely need second agent for bp control 2. subacute cough - cause unclear now, could be allergy related or prolonged URI - has been on enalapril for years without problems - CXR normal 3. T2DM - will continue home med glargine and sitagliptin, exenatide - blood glucose monitoring 4. Normocytic anemia - Hb11.6, mostly stable 5. Pyuria with mild leukocytosis - asymptomatic - will wait urine cs result 6. DVT prophylaxis - sc Lovenox Attestation Documenting Resident: Ashanti Isaacs Supervising Physician: Dominic Ashley Attending/Supervising Physician Comment: Lungs clear during our evaluation likely due to patient receiving lasix and already having over 500cc of urine output prior to our exam. Will still follow up ECHO to check EF. Attestation: This service has been performed in part by a resident under the direction of a teaching physician.I, Dominic Ashley, performed the service, or was physically present during the critical, or childers portions of the service, furnished by the resident. I participated in the management of the patient.
[2019-10-18] MEDS ORDERED: Enoxaparin(*) 40 MG/0.4 ML SYR SUBCUT SCH (06:00)
[2019-10-18] MEDS ORDERED: Levothyroxine TAB* 75 MCG TAB PO SCH (06:00)
[2019-10-18] MEDS ORDERED: rOPINIRole TAB* 4 MG PO SCH (09:00)
[2019-10-18] MEDS ORDERED: Pantoprazole TAB * 40 MG TAB PO SCH (09:00)
[2019-10-18] MEDS ORDERED: Citalopram TAB* 20 MG PO SCH (09:00)
[2019-10-18] MEDS ORDERED: Polymyx/Trimethoprim OPTH* 10 ML BTL BOTH EYES SCH (09:00)
[2019-10-18] MEDS ORDERED: Insulin GLARGINE(*) 1 UNITS UNIT SUBCUT SCH (09:00)
[2019-10-18] MEDS ORDERED: Pregabalin 100 mg CAP (*) PO SCH (09:00)
[2019-10-18] MEDS ORDERED: CMCS:SitaGLIPtin (NF) 100 MG TAB PO SCH (09:00)
[2019-10-18 09:09] LABS: Glucose Confirmatory 528 mg/dL (70-100)
[2019-10-18] MEDS ORDERED: Insulin LISPRO* 1 UNITS UNIT SUBCUT ONE (09:14)
[2019-10-18] MEDS ORDERED: Dextrose 50% VIAL 50 ml IV PUSH PRN (09:15)
[2019-10-18] MEDS ORDERED: amLODIPine TAB* 5 MG PO SCH (10:00)
[2019-10-18 10:01] LABS: Troponin I 0.09 ng/mL (<0.03)
[2019-10-18] MEDS ORDERED: Ipratropium 0.5MG/2.5ML NEB* 0.5 MG/2.5 ML NEB.SOLN INH PRN (11:31)
[2019-10-18] MEDS: Insulin LISPRO* 1 UNITS UNIT SUBCUT SCH ×2 (12:27→17:25)
[2019-10-18 15:33] VITALS: BP 159/62
[2019-10-18] MEDS ORDERED: Benzocaine/Menthol LOZ* 1 LOZENGE PO PRN (15:48)
--- NOTE | 2019-10-18 20:48 | DS ---
CC: Dr. Maxi Rivero * DISCHARGE SUMMARY: DATE OF ADMISSION: 10/18/19 DATE OF DISCHARGE: 10/18/19 PRIMARY CARE PHYSICIAN: Dr. Maxi Rivero. PRIMARY DIAGNOSES: 1. Hypertensive emergency. 2. Uncontrolled type 2 diabetes. SECONDARY DIAGNOSES: 1. Hypothyroidism. 2. Anxiety and depression. 3. Gastroesophageal reflux disease. DISCHARGE MEDICATIONS: 1. Amlodipine 5 mg daily. 2. Enalapril 20 mg twice a day. 3. Aspirin 325 mg daily. 4. Lovastatin 80 mg at bedtime. 5. Insulin 100 units subcutaneous daily. 6. Sitagliptin 100 mg daily. 7. Ropinirole 4 mg daily as needed for restless legs. 8. Omeprazole 20 mg daily. 9. Citalopram 20 mg daily. 10. Tramadol 50 mg every 6 hours as needed for pain. 11. Pregabalin 100 mg b.i.d. 12. Quetiapine 50 mg at bedtime. 13. Levothyroxine 75 mcg daily. 14. Lorazepam 0.5 to 1 mg once a day as needed. HISTORY OF PRESENT ILLNESS: Ms. Page is a 79-year-old female with uncontrolled type 2 diabetes, hypertension, hypothyroidism, reflux, anxiety, depression, and arthritis. He was sent to the hospital by a physician melter assistant in her primary care's office for elevated blood pressure to 180/88. The patient had attended an outpatient visit for chronic cough which started after she experienced an upper respiratory tract infection 4 weeks ago. The cough is dry and mild and associated with throat discomfort. She previously had sore throat and cough 4 weeks ago but now denies these symptoms. She has no myalgias, shortness of breath, or chest pain. In her primary care's office when her blood pressure was significantly elevated, she thought she may have had a mild chest pain, but it was mostly brought on when she was coughing and it was not associated with dyspnea, palpitations or lightheadedness. HOSPITAL COURSE: In the emergency room, the patient's blood pressure at one point was 201/85, she was noted to have a troponin to 0.09, with last recorded troponin over 6 years ago at 0.05. The patient reported cough, but no chest, jaw or shoulder pain. She was given Lasix and continued on her home enalapril, although she was not noted to have volume overload or hypoxia. Several hours later, on morning of admission, the patient reports feeling very well and preferred to go home. She was aware that her troponin was elevated and 2 repeat values were stable at 0.09. As an echocardiogram could be not performed on Sunday in the hospital, the patient did not want to wait until Sunday for echocardiogram given that she feels well. She was initiated on amlodipine as well and had her last recorded blood pressure in the afternoon, 159/62. Of note , the patient's blood sugars were very difficult to control throughout admission. The patient reports that recently she has been undergoing a lot of stress. She has been eating a significant amount of carbohydrates and may have been missing insulin doses. She had required extra dose of the short-acting insulin during hospitalization. She was discharged in the afternoon when her fingerstick reached 240, which the patient reports is her baseline. On day of discharge, she denied chest pain, shortness of breath. She reports chronic dry cough unchanged for the last 4 weeks for which she was given various cough medicines. She reports walking around the unit without chest pain or shortness of breath. The patient was noted to have bacteria and white cells in her urine , but urinalysis was negative for leukocyte esterase and nitrite. The patient repeatedly denied dysuria, fevers or chills. She was educated to avoid processed foods and especially carbohydrates and sugars for ongoing blood glucose control and she reports being aware of this type of diet. She is also encouraged to follow up closely with her primary care physician for ongoing monitoring and to obtain an outpatient echocardiogram. The patient preferred this plan rather than to wait in the hospital for another day for transthoracic echocardiogram. The patient's EKG was reviewed with Dr. Faustino Espino of Cardiology and he reports there are no concerning changes. REVIEW OF SYSTEMS: A complete 10-point of review of systems was performed and pertinent positives and negatives aRe listed above. PHYSICAL EXAMINATION: The patient is well-appearing, sitting on the side of bed talking with her roommate. She is speaking in full sentences, alert, interactive and very pleasant. Neck: No JVD. HEENT: With moist mucous membranes. OP clear. Sclerae anicteric. Lungs are clear to auscultation bilaterally. Heart: Regular rate and rhythm. No murmurs, gallops, or rubs. Abdomen: Soft, nontender, and nondistended. Extremities: Warm and well perfused without evidence of edema. Neuro: A and O x3, no focal weakness. PERTINENT STUDIES: CBC notable for leukocytosis to 11.5 without a left shift. BMP with hypokalemia to 3.3, and creatinine improved from baseline to 1.02. Blood glucose at times over 500, but by afternoon of discharge 240. Troponin 0.09 x3. Chest x-ray with no active cardiopulmonary disease noted. Chest CTA without acute findings or evidence of pulmonary embolus, ill-defined bibasilar lung opacities, likely atelectasis with possible mild interstitial edema, borderline cardiomegaly, coronary artery disease, 1.5 cm left thyroid nodule with internal calcifications unchanged since prior CT. Electrocardiogram with sinus tachycardia, rate 102, right bundle-branch block and left anterior fascicular block, T wave inversions in V1 through 3. This is largely unchanged from EKG from 4 years ago. DISCHARGE PLAN: The patient prefers to follow up for the cardiac testing with her outpatient providers. For her hypertension, she has been started on amlodipine as a second agent with good response during admission. She should continue to check her blood pressures at home and bring a log to her primary care physician for further medication titration. For her cardiac health, she should continue to have her blood glucose tightly controlled with improved insulin regimen and ongoing monitoring of her hemoglobin A1c and renal function. She should continue to have electrolyte monitoring as her potassium required repletion during this admission. The patient was educated on return precautions which include but are not limited to chest pain, shortness of breath, or focal neuro symptoms. She should eat a healthy diet low in carbohydrates and low in processed food for blood glucose control. She should resume activities as tolerated. DISPOSITION: Home. CONDITION: Improved. TIME SPENT: Approximately 60 minutes was spent on discharge of this patient, more than half of which was spent with care coordination at bedside for interview and exam. [id number]/[facility] #: [id number] YAW
[2019-10-18] MEDS ORDERED: QUEtiapine TAB* 25 MG PO SCH (21:00)
[2019-10-18] MEDS ORDERED: Atorvastatin* 20 MG TAB PO SCH (21:00)
== END 2019-10-18 18:00 | disposition home or self-care (01) ==
LOC: ED 17:21 → MEDTELE 10-18 02:30 → INTOOBSV 10-18 02:30
PROVIDERS: ADMIT Internal Medicine; ATTEND Internal Medicine
DX: I16.0 Hypertensive urgency (principal); E11.9 Type 2 diabetes mellitus without complications; Z79.4 Long term (current) use of insulin; F41.9 Anxiety disorder, unspecified; E03.9 Hypothyroidism, unspecified; F32.9 Major depressive disorder, single episode, unspecified; R94.31 Abnormal electrocardiogram [ECG] [EKG]; K21.9 Gastro-esophageal reflux disease without esophagitis; R05 Cough; Z79.82 Long term (current) use of aspirin; Z79.899 Other long term (current) drug therapy; Z87.442 Personal history of urinary calculi
CPT/HCPCS: 36415; 71045; 71275; 80053; 81003; 81015; 82947; 83605; 84484; 85025; 85610; 87040; 87077; 87086; 87186; 93005; 94640; 96365; 96372; 96375; 99285; A9270-GY; G0378; J0696; J1650; J1940; Q9967

== ENCOUNTER 2021-04-10 22:19 | Inpatient (IN) ==
[2021-04-10 23:24] LABS: ABS Basophils 0.1 10^3/ul (0-0.2); ABS Eosinophils 0.3 10^3/ul (0-0.6); ABS Lymphocytes 1.4 10^3/ul (1.0-4.8); ABS Monocytes 0.8 10^3/ul (0-0.8); ABS Neutrophils 9.5 10^3/ul (1.5-7.7); Eosinophil % 2.1 %; Hematocrit 33 % (35-47); Hemoglobin 10.7 g/dL (12.0-16.0); Lymphocyte % 11.9 %; Mean Corpuscular HGB Conc 32 g/dL (31-36); Mean Corpuscular Hemoglobin 27 pg (27-31); Mean Corpuscular Volume 85 fL (80-97); Mean Platelet Volume 9.9 fL (7.4-10.4); Platelet Count 226 10^3/uL (150-450); Red Blood Count 3.92 10^6 /uL (3.70-4.87); Red Cell Distribution Width 15 % (10-15)
[2021-04-10 23:44] LABS: ALT 18 U/L (7-52); AST 17 U/L (13-39); Albumin 3.9 g/dL (3.2-5.2); Albumin/Globulin Ratio 1.4 (1-3); Alkaline Phosphatase 68 U/L (35-149); Anion Gap 6 mmol/L (2-11); Blood Urea Nitrogen 16 mg/dL (6-24); CO2 Carbon Dioxide 26 mmol/L (22-32); Calcium 9.3 mg/dL (8.6-10.3); Chloride 103 mmol/L (101-111); EGFR African American 70.6 (>60); EGFR Non-African American 58.3 (>60); Globulin 2.8 g/dL (2-4); Glucose 271 mg/dL (70-100); Potassium 4.3 mmol/L (3.5-5.0); Sodium 135 mmol/L (135-145); Total Protein 6.7 g/dL (6.4-8.9)
[2021-04-11 00:02] LABS: Troponin I 0.04 ng/mL (<0.03)
[2021-04-11] MEDS ORDERED: Azithromycin 500 mg/250 ml NS 500 MG/250 ML BAG IVPB ONE (05:12)
[2021-04-11] MEDS ORDERED: cefTRIAXone 1 gm/50 mL NS BAG 1 GM/50 ML BAG IV ONE (05:12)
[2021-04-11] MEDS ORDERED: Furosemide 20 mg/2 ml IV VIAL IV SLOW PU ONE (06:40)
[2021-04-11] MEDS ORDERED: Dextrose 50% Syringe 50 ml 25 GM/50 ML SYRINGE IV PUSH PRN (06:41)
[2021-04-11] MEDS: Enoxaparin 40 MG/0.4 ML SYR SUBCUT SCH (08:28)
[2021-04-11 08:57] LABS: Urine Appearance Clear; Urine Bilirubin Negative (Negative); Urine Blood 1+ (Negative); Urine Color Straw; Urine Glucose 1+(50 mg/dL) (Negative); Urine Ketones Negative (Negative); Urine Nitrite Negative (Negative); Urine Protein Negative (Negative); Urine Specific Gravity 1.006 (1.002-1.030); Urine Urobilinogen Negative (Negative)
[2021-04-11] MEDS ORDERED: Insulin GLARGINE 100 un/ml 10 ml VIAL SUBCUT SCH (09:00)
[2021-04-11 09:03] LABS: Urine Bacteria 1+ (Absent); Urine Red Blood Cell Trace(0-2/hpf) (Absent); Urine Squamous Epithelial Cell Present (Absent); Urine White Blood Cell 1+(6-10/hpf) (Absent)
[2021-04-11] MEDS: Insulin GLARGINE 100 un/ml 10 ml VIAL SUBCUT SCH (10:13)
[2021-04-11] MEDS ORDERED: Iodixanol (CONTRAST) 320 MG/ML 100 ML SDV IV ONE (11:03)
[2021-04-11 11:18] LABS: Troponin I 0.04 ng/mL (<0.03)
[2021-04-12] MEDS: cefTRIAXone 1 gm/50 mL NS BAG 1 GM/50 ML BAG IVPB SCH (05:32)
[2021-04-12 06:07] LABS: ABS Basophils 0.1 10^3/ul (0-0.2); ABS Eosinophils 0.3 10^3/ul (0-0.6); ABS Lymphocytes 2.2 10^3/ul (1.0-4.8); ABS Monocytes 0.6 10^3/ul (0-0.8); ABS Neutrophils 4.1 10^3/ul (1.5-7.7); Eosinophil % 4.7 %; Hematocrit 30 % (35-47); Hemoglobin 9.7 g/dL (12.0-16.0); Lymphocyte % 30.1 %; Mean Corpuscular HGB Conc 33 g/dL (31-36); Mean Corpuscular Hemoglobin 28 pg (27-31); Mean Corpuscular Volume 86 fL (80-97); Mean Platelet Volume 9.9 fL (7.4-10.4); Platelet Count 194 10^3/uL (150-450); Red Blood Count 3.49 10^6 /uL (3.70-4.87); Red Cell Distribution Width 16 % (10-15); White Blood Count 7.3 10^3/uL (3.5-10.8)
[2021-04-12 06:25] LABS: Calcium 8.7 mg/dL (8.6-10.3); EGFR Non-African American 49.6 (>60); Potassium 4.1 mmol/L (3.5-5.0)
[2021-04-12] MEDS: Insulin GLARGINE 100 un/ml 10 ml VIAL SUBCUT SCH (08:30)
[2021-04-12] MEDS: Enoxaparin 40 MG/0.4 ML SYR SUBCUT SCH (08:31)
[2021-04-12] MEDS ORDERED: Insulin GLARGINE 100 un/ml 10 ml VIAL SUBCUT ONE (10:31)
[2021-04-12] MEDS ORDERED: Furosemide 20 mg/2 ml IV VIAL IV ONE (11:32)
[2021-04-12] MEDS ORDERED: Perflutren Lipid Microsphere 3 ML VIAL ONE (12:40)
[2021-04-13] MEDS: cefTRIAXone 1 gm/50 mL NS BAG 1 GM/50 ML BAG IVPB SCH (05:19)
[2021-04-13 06:50] LABS: Calcium 9.5 mg/dL (8.6-10.3)
[2021-04-13 06:55] LABS: EGFR African American 55.8 (>60); EGFR Non-African American 46.1 (>60)
[2021-04-13] MEDS: Enoxaparin 40 MG/0.4 ML SYR SUBCUT SCH (07:48)
[2021-04-13] MEDS ORDERED: Insulin GLARGINE 100 un/ml 10 ml VIAL SUBCUT SCH (09:00)
[2021-04-13 11:34] VITALS: BP 139/53
== END 2021-04-13 13:47 | disposition home or self-care (01) | DRG 291 ==
LOC: ED 22:19 → MEDTELE 04-11 13:10
PROVIDERS: ADMIT Internal Medicine; ATTEND Student in an Organized Health Care Education/Training Program

== ENCOUNTER 2021-05-05 16:34 | Inpatient (IN) ==
[2021-05-05 19:33] LABS: Urine Appearance Clear; Urine Bilirubin Negative (Negative); Urine Blood Negative (Negative); Urine Color Straw; Urine Glucose 3+(>=500 mg/dL) (Negative); Urine Ketones 2+ (Negative); Urine Nitrite Negative (Negative); Urine Protein Negative (Negative); Urine Specific Gravity 1.021 (1.002-1.030); Urine Urobilinogen Negative (Negative)
[2021-05-05 21:22] LABS: Venous Bicarbonate HCO3 14.3 mmol/L (24-28)
[2021-05-05 21:27] LABS: ABS Basophils 0.1 10^3/ul (0-0.2); ABS Eosinophils 0.1 10^3/ul (0-0.6); ABS Lymphocytes 2.4 10^3/ul (1.0-4.8); ABS Monocytes 0.5 10^3/ul (0-0.8); ABS Neutrophils 6.7 10^3/ul (1.5-7.7); Hematocrit 36 % (35-47); Hemoglobin 11.7 g/dL (12.0-16.0); Lymphocyte % 24.6 %; Mean Corpuscular HGB Conc 32 g/dL (31-36); Mean Corpuscular Hemoglobin 28 pg (27-31); Mean Corpuscular Volume 87 fL (80-97); Mean Platelet Volume 10.9 fL (7.4-10.4); Platelet Count 253 10^3/uL (150-450); Red Blood Count 4.16 10^6 /uL (3.70-4.87); Red Cell Distribution Width 15 % (10-15); White Blood Count 9.7 10^3/uL (3.5-10.8)
[2021-05-05] MEDS: Lactated Ringers 1000 ml BAG 1,000 ML IV SCH (21:34)
[2021-05-05 21:41] LABS: Albumin 4.2 g/dL (3.2-5.2); Albumin/Globulin Ratio 1.4 (1-3); C Reactive Protein 16.14 mg/L (<8.01); Calcium 9.7 mg/dL (8.6-10.3); EGFR African American 34.7 (>60); EGFR Non-African American 28.7 (>60); Globulin 2.9 g/dL (2-4); Magnesium 2.4 mg/dL (1.9-2.7); Total Bilirubin 0.4 mg/dL (0.2-1.0); Total Protein 7.1 g/dL (6.4-8.9)
[2021-05-05 21:48] LABS: Potassium 6.5 mmol/L (3.5-5.0)
[2021-05-05] MEDS ORDERED: Insulin Infusion 100unit/100mL 100 UNIT/100 ML BAG IV ONE (21:51)
[2021-05-05] MEDS ORDERED: Magnesium Hydroxide LIQ 30 ML UDC PO PRN (23:02)
[2021-05-05] MEDS ORDERED: NS 0.45% 1000 ml BAG 1,000 ML IV SCH (23:45)
[2021-05-05] MEDS ORDERED: Insulin Infusion 100unit/100mL 100 UNIT/100 ML BAG IV SCH (23:45)
[2021-05-06] LABS: Phosphorus 6.5 mg/dL (2.5-5.0)
[2021-05-06 00:42] LABS: Glucose Confirmatory 617 mg/dL (70-100)
[2021-05-06 01:56] LABS: Calcium 9.5 mg/dL (8.6-10.3); EGFR African American 38.8 (>60); EGFR Non-African American 32.1 (>60); Potassium 4.4 mmol/L (3.5-5.0)
[2021-05-06] MEDS ORDERED: Prochlorperazine 5 mg/ml 2 ml VIAL (10 mg) IV PRN (02:39)
[2021-05-06] MEDS ORDERED: NS 0.45% KCl 20 Meq 1000 ml 1,000 ML IV SCH (03:00)
[2021-05-06] MEDS: Lactated Ringers 1000 ml BAG 1,000 ML IV SCH (03:22)
[2021-05-06] MEDS ORDERED: D5W 1/2 NS KCl 20 meq 1000 ml 1,000 ML IV SCH ×2 (05:00→10:59)
[2021-05-06 05:57] LABS: Anion Gap 13 mmol/L (2-11); Blood Urea Nitrogen 39 mg/dL (6-24); CO2 Carbon Dioxide 22 mmol/L (22-32); Chloride 95 mmol/L (101-111); EGFR African American 41.9 (>60); EGFR Non-African American 34.6 (>60); Glucose 210 mg/dL (70-100); Sodium 130 mmol/L (135-145)
[2021-05-06] MEDS: Heparin 5000 UNITS/ML 1 mL VIAL SUBCUT SCH ×3 (06:28→22:08)
[2021-05-06 11:56] LABS: TSH Ultra Thyroid Stim Horm 6.72 mcIU/mL (0.34-5.60)
[2021-05-06 11:57] LABS: Calcium 9.4 mg/dL (8.6-10.3); Potassium 4.8 mmol/L (3.5-5.0)
[2021-05-06 12:23] LABS: % Iron Saturation 16 % (15-55); Iron 57 ug/dL (50-212); Total Iron Binding Capacity 367 mcg/dL (250-450); Transferrin 262 mg/dL (203-362); Unsaturated Iron Binding < 352 ug/dL
[2021-05-06 13:05] LABS: EGFR African American 47.1 (>60); EGFR Non-African American 38.9 (>60)
[2021-05-06] MEDS ORDERED: Insulin GLARGINE 100 un/ml 10 ml VIAL SUBCUT ONE ×2 (13:11→21:22)
[2021-05-06] MEDS ORDERED: Senna TAB 8.6 mg TAB PO PRN (13:15)
[2021-05-06] MEDS ORDERED: Dextrose 50% Syringe 50 ml 25 GM/50 ML SYRINGE IV PUSH PRN ×2 (13:33→21:22)
[2021-05-06 15:43] LABS: Calcium 9.9 mg/dL (8.6-10.3); EGFR African American 47.1 (>60); EGFR Non-African American 38.9 (>60); Potassium 4.4 mmol/L (3.5-5.0)
[2021-05-06 18:10] LABS: ABS Basophils 0.1 10^3/ul (0-0.2); ABS Eosinophils 0.5 10^3/ul (0-0.6); ABS Lymphocytes 4.4 10^3/ul (1.0-4.8); ABS Monocytes 0.6 10^3/ul (0-0.8); ABS Neutrophils 6.1 10^3/ul (1.5-7.7); Eosinophil % 4.2 %; Hematocrit 38 % (35-47); Hemoglobin 12.8 g/dL (12.0-16.0); Lymphocyte % 37.6 %; Mean Corpuscular HGB Conc 34 g/dL (31-36); Mean Corpuscular Hemoglobin 29 pg (27-31); Mean Corpuscular Volume 84 fL (80-97); Nucleated Red Blood Cells % 0.2; Platelet Count 304 10^3/uL (150-450); Red Blood Count 4.49 10^6 /uL (3.70-4.87); Red Cell Distribution Width 15 % (10-15); White Blood Count 11.7 10^3/uL (3.5-10.8)
[2021-05-07 06:04] LABS: ABS Basophils 0.1 10^3/ul (0-0.2); ABS Eosinophils 0.5 10^3/ul (0-0.6); ABS Lymphocytes 3.5 10^3/ul (1.0-4.8); ABS Monocytes 0.5 10^3/ul (0-0.8); ABS Neutrophils 4.3 10^3/ul (1.5-7.7); Eosinophil % 5.2 %; Hematocrit 36 % (35-47); Hemoglobin 11.8 g/dL (12.0-16.0); Lymphocyte % 39.5 %; Mean Corpuscular HGB Conc 33 g/dL (31-36); Mean Corpuscular Hemoglobin 28 pg (27-31); Mean Corpuscular Volume 84 fL (80-97); Mean Platelet Volume 9.7 fL (7.4-10.4); Platelet Count 254 10^3/uL (150-450); Red Blood Count 4.22 10^6 /uL (3.70-4.87); Red Cell Distribution Width 15 % (10-15); White Blood Count 8.9 10^3/uL (3.5-10.8)
[2021-05-07 06:23] LABS: Albumin 3.9 g/dL (3.2-5.2); Albumin/Globulin Ratio 1.4 (1-3); Calcium 9.7 mg/dL (8.6-10.3); EGFR African American 59.4 (>60); EGFR Non-African American 49.1 (>60); Globulin 2.7 g/dL (2-4); Potassium 4.2 mmol/L (3.5-5.0); Total Bilirubin 0.3 mg/dL (0.2-1.0); Total Protein 6.6 g/dL (6.4-8.9)
[2021-05-07] MEDS: Heparin 5000 UNITS/ML 1 mL VIAL SUBCUT SCH (08:38)
[2021-05-07] MEDS ORDERED: Dextrose 50% Syringe 50 ml 25 GM/50 ML SYRINGE IV PUSH PRN (08:58)
[2021-05-07 09:05] LABS: Glucose Confirmatory 430 mg/dL (70-100)
[2021-05-07] MEDS: Insulin GLARGINE 100 un/ml 10 ml VIAL SUBCUT SCH (09:31)
[2021-05-07 10:32] LABS: Glucose Confirmatory 465 mg/dL (70-100)
[2021-05-07] MEDS: Enoxaparin 40 MG/0.4 ML SYR SUBCUT SCH (13:33)
[2021-05-07] MEDS ORDERED: Insulin GLARGINE 100 un/ml 10 ml VIAL SUBCUT SCH (21:00)
[2021-05-08] MEDS: Insulin GLARGINE 100 un/ml 10 ml VIAL SUBCUT SCH (08:46)
[2021-05-08 08:58] LABS: ABS Basophils 0.1 10^3/ul (0-0.2); ABS Eosinophils 0.2 10^3/ul (0-0.6); ABS Monocytes 0.5 10^3/ul (0-0.8); ABS Neutrophils 4.2 10^3/ul (1.5-7.7); Eosinophil % 3.1 %; Hematocrit 34 % (35-47); Hemoglobin 11.1 g/dL (12.0-16.0); Lymphocyte % 28.9 %; Mean Corpuscular HGB Conc 33 g/dL (31-36); Mean Corpuscular Hemoglobin 28 pg (27-31); Mean Corpuscular Volume 86 fL (80-97); Mean Platelet Volume 10.4 fL (7.4-10.4); Nucleated Red Blood Cells % 0.2; Platelet Count 164 10^3/uL (150-450); Red Blood Count 3.95 10^6 /uL (3.70-4.87); Red Cell Distribution Width 16 % (10-15); White Blood Count 6.9 10^3/uL (3.5-10.8)
[2021-05-08 09:21] LABS: Blood Urea Nitrogen 32 mg/dL (6-24); CO2 Carbon Dioxide 21 mmol/L (22-32); Calcium 9.1 mg/dL (8.6-10.3); Chloride 98 mmol/L (101-111); EGFR African American 48.8 (>60); EGFR Non-African American 40.3 (>60); Glucose 458 mg/dL (70-100); Sodium 128 mmol/L (135-145)
[2021-05-08 09:24] LABS: Anion Gap 9 mmol/L (2-11)
[2021-05-08 12:44] LABS: Potassium Redraw 4.6 mmol/L (3.5-5.0)
[2021-05-08 12:45] LABS: Glucose Confirmatory 452 mg/dL (70-100)
[2021-05-08] MEDS: Enoxaparin 40 MG/0.4 ML SYR SUBCUT SCH (13:26)
[2021-05-09 06:37] LABS: Calcium 9.3 mg/dL (8.6-10.3); EGFR African American 43.3 (>60); EGFR Non-African American 35.8 (>60); Magnesium 1.9 mg/dL (1.9-2.7); Potassium 4.1 mmol/L (3.5-5.0)
[2021-05-09] MEDS ORDERED: Insulin GLARGINE 100 un/ml 10 ml VIAL SUBCUT SCH (09:00)
[2021-05-09] MEDS: Enoxaparin 40 MG/0.4 ML SYR SUBCUT SCH (14:22)
[2021-05-10 06:31] LABS: Calcium 9.2 mg/dL (8.6-10.3); EGFR African American 48.8 (>60); EGFR Non-African American 40.3 (>60); Potassium 4.6 mmol/L (3.5-5.0)
[2021-05-10] MEDS ORDERED: Insulin GLARGINE 100 un/ml 10 ml VIAL SUBCUT SCH (09:00)
[2021-05-10 11:08] VITALS: BP 127/70
== END 2021-05-10 14:20 | disposition home or self-care (01) | DRG 638 ==
LOC: ED 16:34 → ICU 20:45 → MED 05-07 19:39 → SSU 05-09 10:27
PROVIDERS: ADMIT Hospitalist; ATTEND Student in an Organized Health Care Education/Training Program